=== PATIENT | male | born 1955 | race Caucasian/White ===

== ENCOUNTER 2023-07-24 07:33 | Day surgery (SDC) | payer BC ==
[~2023-07-24] VITALS: Ht 177.8 cm; Wt 94.3 kg
[2023-07-24] MEDS ORDERED: MIDAZOLAM HCL 5 MG/5 ML VIAL ONE (07:44)
[2023-07-24] MEDS ORDERED: MEPERIDINE 100 MG INJ. 100 MG/ML VIAL ONE (07:45)
[2023-07-24 08:38] VITALS: O2SAT 98
[2023-07-24] MEDS ORDERED: SIMETHICONE 40 MG/0.6 ML ML ONE (08:53)
[2023-07-24] MEDS ORDERED: fentaNYL CITRATE/PF 100 MCG/2 ML AMP ONE (09:24)
[2023-07-24 11:00] VITALS: BP_SYST 128; PULSE 50; RESP 18; TEMP 98
== END 2023-07-24 11:50 | disposition home or self-care (01) ==
LOC: SDS 07:33 → SMU 07:36 → SDS 11:50
PROVIDERS: ATTEND Internal Medicine
DX: Z12.11 Encounter for screening for malignant neoplasm of colon (principal); K63.5 Polyp of colon; K57.30 Diverticulosis of large intestine without perforation or abscess without bleeding; I12.0 Hypertensive chronic kidney disease with stage 5 chronic kidney disease or end stage renal disease; N18.6 End stage renal disease; K64.8 Other hemorrhoids; Z99.2 Dependence on renal dialysis; Z87.891 Personal history of nicotine dependence; Z79.899 Other long term (current) drug therapy
CPT/HCPCS: 45380; 45385; 88305; 99152; 99153; G0378; J2250; J3010; J2175

== ENCOUNTER 2023-11-25 23:36 | Inpatient (IN) | payer BC, OTHER ==
[~2023-11-25] VITALS: Ht 177.8 cm; Wt 99.8 kg
[2023-11-25 23:52] VITALS: BP_SYST 152; PULSE 57; RESP 16; TEMP 97.1; O2SAT 96
[2023-11-25] MEDS: IPRATROPIUM/ALBUTEROL SULFATE 3 ML AMPUL.NEB (DUONEB) INH ONE (23:52)
[2023-11-26] VITALS (7 sets, daily range): BP systolic 123–152; PULSE 55–60; RESP 20; TEMP 97–98.4; O2SAT 2–99
[2023-11-26] MEDS: methylPREDNISolone SOD SUCC/PF 62.5 MG/ML VIAL IVP ONE (00:15)
[2023-11-26 00:17] LABS: BASOPHILS # (AUTO) 0.1 K/uL (0.0-0.2); BASOPHILS % (AUTO) 0.8 % (0.0-2.0); EOSINOPHILS # (AUTO) 0.3 K/uL (0.0-0.4); EOSINOPHILS % (AUTO) 2.5 % (0.0-4.0); HEMATOCRIT 32.2 % (36-54); LYMPHOCYTES % (AUTO) 7.8 % (20.5-51.5); MEAN CORPUSCULAR HEMOGLOBIN 38 pg (27-31); MEAN CORPUSCULAR HGB CONC 34 % (32-36); MEAN CORPUSCULAR VOLUME 112 fL (79.0-98.0); MONOCYTES # (AUTO) 1.3 K/uL (0.0-1.0); MONOCYTES % (AUTO) 10.5 % (1.7-9.3); NEUTROPHILS # (AUTO) 9.6 K/uL (1.8-7.7); NEUTROPHILS % (AUTO) 78.4 % (40.0-70.0); PLATELET COUNT (AUTO) 158 K/uL (130-430); RED BLOOD CELL COUNT(AUTO) 2.86 MIL/uL (4.2-6.2); WHITE BLOOD COUNT (AUTO) 12.2 K/uL (4.8-10.8)
[2023-11-26 01:03] LABS: ANION GAP 23 (5-15); CALCIUM 9.5 mg/dL (8.4-11.0); CARBON DIOXIDE 20 mmol/L (23-29); CHLORIDE 94 mmol/L (98-107); GFR AFRICAN AMERICAN 4 mL/min (>90); GFR NON AFRICAN-AMERICAN 4 mL/min (>90); GLUCOSE 154 mg/dL (74-106); POTASSIUM 5.7 mmol/L (3.5-5.1); SODIUM SERUM 137 mmol/L (136-145); UREA NITROGEN, BLOOD 98 mg/dL (8-21)
[2023-11-26 01:05] LABS: CREATININE 14.27 mg/dL (0.55-1.30)
[2023-11-26] MEDS ORDERED: ATROPINE SULFATE 0.4 MG/ML VIAL ONE (02:56)
[2023-11-26] MEDS ORDERED: CALCIUM CHLORIDE 1 GM/10 ML DISP.SYRIN (14 mEq Ca++/SYR) ONE (03:06)
[2023-11-26] MEDS ORDERED: DEXTROSE 50% JECT 50 ML DISP.SYRIN ONE (03:08)
[2023-11-26] MEDS: IPRATROPIUM/ALBUTEROL SULFATE 3 ML AMPUL.NEB (DUONEB) INH PRN (03:14)
[2023-11-26] MEDS ORDERED: ATROPINE SULFATE 0.4 MG/ML VIAL IM ONE (03:30)
[2023-11-26] MEDS: CALCIUM CHLORIDE 1 GM in NS 100 ML IV ONE (03:41)
[2023-11-26] MEDS: INSULIN REGULAR, HUMAN 10 UNITS/0.1 ML, 3 ML VIAL IVP ONE (03:41)
[2023-11-26] MEDS: DEXTROSE 50% JECT 50 ML DISP.SYRIN IVP ONE (03:43)
[2023-11-26] MEDS: ATROPINE SULFATE 0.4 MG/ML VIAL IVP ONE (04:02)
[2023-11-26 04:09] LABS: CALCIUM 8.9 mg/dL (8.4-11.0)
[2023-11-26 04:21] LABS: CREATININE 14.32 mg/dL (0.55-1.30); POTASSIUM 6.9 mmol/L (3.5-5.1)
[2023-11-26] MEDS ORDERED: TAMS0.4C96 PO (06:11)
[2023-11-26] MEDS ORDERED: AMLO5TAB92 PO (06:11)
[2023-11-26] MEDS ORDERED: CALC667C4 PO (06:11)
[2023-11-26] MEDS ORDERED: ATEN-41 PO (06:11)
[2023-11-26] MEDS ORDERED: CINA30TA3 PO (06:11)
[2023-11-26 08:17] LABS: COVID19 ANTIGEN SOFIA FIA NEGATIVE (NEGATIVE)
[2023-11-26 08:21] LABS: INFLUENZA TYPE A Negative (NEGATIVE); INFLUENZA TYPE B NEGATIVE (NEGATIVE)
[2023-11-26] MEDS ORDERED: HYDROcodone/ACETAMIN 5-325 MG TAB (NORCO/ VICODIN) PO PRN (08:30)
[2023-11-26] MEDS ORDERED: hydrALAZINE HCL 20 MG/ML VIAL IVP PRN (08:30)
[2023-11-26] MEDS ORDERED: ONDANSETRON HCL 4 MG/2 ML VIAL IVP PRN (08:30)
[2023-11-26] MEDS ORDERED: ZOLPIDEM TARTRATE 5 MG TABLET PO PRN (09:15)
[2023-11-26 09:36] LABS: BASOPHILS # (AUTO) 0.1 K/uL (0.0-0.2); BASOPHILS % (AUTO) 0.6 % (0.0-2.0); HEMATOCRIT 34.5 % (36-54); HEMOGLOBIN 11.6 g/dL (14.0-18.0); LYMPHOCYTES # (AUTO) 0.6 K/uL (1.0-5.5); LYMPHOCYTES % (AUTO) 5.7 % (20.5-51.5); MEAN CORPUSCULAR HEMOGLOBIN 36 pg (27-31); MEAN CORPUSCULAR HGB CONC 34 % (32-36); MEAN CORPUSCULAR VOLUME 107 fL (79.0-98.0); MONOCYTES # (AUTO) 0.1 K/uL (0.0-1.0); MONOCYTES % (AUTO) 0.9 % (1.7-9.3); NEUTROPHILS # (AUTO) 9.9 K/uL (1.8-7.7); NEUTROPHILS % (AUTO) 92.8 % (40.0-70.0); PLATELET COUNT (AUTO) 140 K/uL (130-430); RED BLOOD CELL COUNT(AUTO) 3.23 MIL/uL (4.2-6.2); RED CELL DISTRIBUTION WIDTH 17.9 % (9.0-15.0); WHITE BLOOD COUNT (AUTO) 10.6 K/uL (4.8-10.8)
[2023-11-26] MEDS: ASPIRIN 81 MG TAB.CHEW PO SCH (10:16)
[2023-11-26] MEDS: TAMSULOSIN HCL 0.4 MG CAP PO SCH (10:17)
[2023-11-26] MEDS: amLODIPine BESYLATE 5 MG TABLET PO SCH (10:26)
[2023-11-26 10:36] LABS: ALBUMIN 3.3 g/dL (3.4-4.8); CALCIUM 9.6 mg/dL (8.4-11.0); POTASSIUM 4.8 mmol/L (3.5-5.1); THYROID STIMULATING HORMONE 1.37 uIu/mL (0.34-4.82); TOTAL BILIRUBIN 1.3 mg/dL (0.0-1.0); TOTAL PROTEIN, SERUM 8.3 g/dL (6.4-8.3)
[2023-11-26 10:39] LABS: CREATININE 9.26 mg/dL (0.55-1.30)
[2023-11-26] MEDS ORDERED: ACETAMINOPHEN 325 MG TABLET PO PRN (12:30)
[2023-11-26] MEDS: AZITHROMYCIN 500 MG in NS 250 ML IV SCH (12:47)
[2023-11-26] MEDS: METHYLPREDNISOLONE SOD SUCC 40 MG/ML VIAL IVP ONE (13:01)
[2023-11-26] MEDS ORDERED: ATORVASTATIN 20 MG TABLET PO SCH (21:00)
[2023-11-26] MEDS: METHYLPREDNISOLONE SOD SUCC 40 MG/ML VIAL IVP SCH (21:51)
[2023-11-26] MEDS: HEPARIN SODIUM,PORCINE 5,000 UNITS/ML VIAL SUBCUT SCH (21:56)
[2023-11-26] MEDS: guaiFENesin 200 MG/CODEINE 20 MG/ 10 ML UDC PO PRN (21:59)
[2023-11-27] VITALS (8 sets, daily range): BP systolic 120–151; PULSE 55–70; RESP 16–22; TEMP 96.3–98; O2SAT 2–100
[2023-11-27 05:07] LABS: BASOPHILS % (AUTO) 0.1 % (0.0-2.0); HEMATOCRIT 31.4 % (36-54); LYMPHOCYTES # (AUTO) 0.4 K/uL (1.0-5.5); LYMPHOCYTES % (AUTO) 4.5 % (20.5-51.5); MEAN CORPUSCULAR HEMOGLOBIN 39 pg (27-31); MEAN CORPUSCULAR HGB CONC 35 % (32-36); MEAN CORPUSCULAR VOLUME 111 fL (79.0-98.0); MONOCYTES # (AUTO) 0.3 K/uL (0.0-1.0); MONOCYTES % (AUTO) 3.3 % (1.7-9.3); NEUTROPHILS # (AUTO) 8.7 K/uL (1.8-7.7); NEUTROPHILS % (AUTO) 92.1 % (40.0-70.0); PLATELET COUNT (AUTO) 165 K/uL (130-430); RED BLOOD CELL COUNT(AUTO) 2.84 MIL/uL (4.2-6.2); RED CELL DISTRIBUTION WIDTH 17.6 % (9.0-15.0); WHITE BLOOD COUNT (AUTO) 9.4 K/uL (4.8-10.8)
[2023-11-27 08:36] LABS: ALBUMIN 3.5 g/dL (3.4-4.8); CALCIUM 8.5 mg/dL (8.4-11.0); POTASSIUM 5.4 mmol/L (3.5-5.1); TOTAL BILIRUBIN 1.2 mg/dL (0.0-1.0); TOTAL PROTEIN, SERUM 8.4 g/dL (6.4-8.3)
[2023-11-27 08:51] LABS: CREATININE 11.67 mg/dL (0.55-1.30)
[2023-11-27] MEDS ORDERED: BUDESONIDE/FORMOTEROL 160-4.5 mCg, 6 GM INHALER INH SCH (09:00)
[2023-11-28] VITALS (7 sets, daily range): BP systolic 136–155; PULSE 63–75; RESP 18–19; TEMP 96.6–97.6; O2SAT 96–99
[2023-11-28] MEDS: ALBUTEROL SULFATE 0.083% 2.5 MG/3 ML VIAL.NEB INH SCH (01:23)
[2023-11-28] MEDS: BUDESONIDE 0.5 MG/2 ML AMPUL.NEB INH SCH (01:23)
[2023-11-28 05:18] LABS: CALCIUM 9.4 mg/dL (8.4-11.0); POTASSIUM 4.9 mmol/L (3.5-5.1)
[2023-11-28 06:01] LABS: CREATININE 10.46 mg/dL (0.55-1.30)
[2023-11-28 07:55] LABS: BASOPHILS % (AUTO) 0.1 % (0.0-2.0); HEMATOCRIT 34.3 % (36-54); HEMOGLOBIN 11.2 g/dL (14.0-18.0); LYMPHOCYTES # (AUTO) 0.4 K/uL (1.0-5.5); LYMPHOCYTES % (AUTO) 3.9 % (20.5-51.5); MEAN CORPUSCULAR HEMOGLOBIN 34 pg (27-31); MEAN CORPUSCULAR HGB CONC 33 % (32-36); MEAN CORPUSCULAR VOLUME 105 fL (79.0-98.0); MONOCYTES # (AUTO) 0.4 K/uL (0.0-1.0); MONOCYTES % (AUTO) 3.3 % (1.7-9.3); NEUTROPHILS # (AUTO) 10.3 K/uL (1.8-7.7); NEUTROPHILS % (AUTO) 92.7 % (40.0-70.0); PLATELET COUNT (AUTO) 181 K/uL (130-430); RED BLOOD CELL COUNT(AUTO) 3.28 MIL/uL (4.2-6.2); RED CELL DISTRIBUTION WIDTH 17.6 % (9.0-15.0); WHITE BLOOD COUNT (AUTO) 11.1 K/uL (4.8-10.8)
[2023-11-28] MEDS ORDERED: ALBMDI INH (10:05)
[2023-11-28] MEDS ORDERED: GUAI100S14 PO (10:05)
[2023-11-28] MEDS ORDERED: PRED20TA PO (10:05)
[2023-11-28] MEDS ORDERED: ZIT250 PO (10:05)
[2023-11-28] MEDS: amLODIPine BESYLATE 10 MG TABLET PO SCH (11:27)
== END 2023-11-28 14:00 | disposition home or self-care (01) | DRG 291 ==
LOC: SED 23:36 → STU 11-26 01:51
PROVIDERS: ADMIT General Practice; ATTEND General Practice
PROC: 5A1D70Z Performance of Urinary Filtration, Intermittent, Less than 6 Hours Per Day (ICD-10-PCS; principal; 2023-11-26)
PROC: 5A1D70Z Performance of Urinary Filtration, Intermittent, Less than 6 Hours Per Day (ICD-10-PCS; 2023-11-27)
PROC: 5A1D70Z Performance of Urinary Filtration, Intermittent, Less than 6 Hours Per Day (ICD-10-PCS; 2023-11-28)
DX: I13.2 Hypertensive heart and chronic kidney disease with heart failure and with stage 5 chronic kidney disease, or end stage renal disease (principal); I50.33 Acute on chronic diastolic (congestive) heart failure; N18.6 End stage renal disease; J44.1 Chronic obstructive pulmonary disease with (acute) exacerbation; I24.89 Other forms of acute ischemic heart disease; N40.0 Benign prostatic hyperplasia without lower urinary tract symptoms; Z20.822 Contact with and (suspected) exposure to COVID-19; E87.5 Hyperkalemia; R00.1 Bradycardia, unspecified; J20.9 Acute bronchitis, unspecified; Z99.2 Dependence on renal dialysis; Z91.119 Patient's noncompliance with dietary regimen due to unspecified reason; Z87.891 Personal history of nicotine dependence
CPT/HCPCS: 36415; 71045; 80048; 80053; 80061; 83037; 83735; 83880; 84443; 84484; 85025; 87040; 87081; 90935; 90937; 93005; 93306; 94640; 94760; 99291; G0378; J0456; J0461; J1030; J1644; J1815; J2930; J7050; J7626